=== PATIENT | female | born 1940 | race Caucasian/White ===

== ENCOUNTER → 2017-09-02 | Outpatient (CLI) | payer OTHER | END | disposition home or self-care (01) | LOC: NUCLEAR 13:18 | DX: Z13.820 Encounter for screening for osteoporosis (principal) ==

== ENCOUNTER 2018-03-03 13:10 | Outpatient (CLI) | payer OTHER | END 2018-03-03 13:20 | disposition home or self-care (01) | LOC: MAMO-SONO 13:10 | DX: Z12.31 Encounter for screening mammogram for malignant neoplasm of breast (principal) ==